=== PATIENT | female | born 1945 | race Caucasian/White ===

== ENCOUNTER 2023-01-27 13:29 | Inpatient (IN) ==
[2023-01-27 13:28] LABS: Hematocrit 39.1 % (35-45); Hemoglobin 13.5 g/dL (11.5-14.3); Mean Corpuscular Hemoglobin 32.1 pg (27-33); Mean Corpuscular Hgb Conc 34.5 g/dL (31-36); Red Cell Distribution Width 13.4 % (12-17); White Blood Count 0.6 10^3/uL (3.8-11.8)
[2023-01-27 13:54] LABS: ALT 19 U/L (7-52); AST 13 U/L (13-39); Albumin 3.9 g/dL (3.2-5.2); Albumin/Globulin Ratio 1.6 (1-3); Alkaline Phosphatase 56 U/L (35-149); Anion Gap 11 mmol/L (2-16); Blood Urea Nitrogen 29 mg/dL (6-24); CO2 Carbon Dioxide 24 mmol/L (22-32); Calcium 8.8 mg/dL (8.6-10.3); Chloride 98 mmol/L (101-111); Creatinine, Serum 0.96 mg/dL (0.51-0.95); Globulin 2.5 g/dL (2-4); Glucose 138 mg/dL (70-100); Magnesium 2.1 mg/dL (1.9-2.7); Potassium 4.1 mmol/L (3.5-5.0); Sodium 133 mmol/L (135-145); Total Protein 6.4 g/dL (6.4-8.9); eGFR CKD-EPI 60.2 (>60)
[2023-01-27 14:17] LABS: ABS Eosinophils 0.1 10^3/uL (0.0-0.5); ABS Lymphocytes 0.4 10^3/uL (1.0-4.8); ABS Monocytes 0.1 10^3/uL (0.0-0.9); ABS Neutrophils 0.1 10^3/uL (1.5-7.6); Eosinophil % 11.1 %; Lymphocyte % 63.2 %; Mean Platelet Volume 10.9 fL (7.5-11.2); Platelet Count 74 10^3/uL (150-450)
[2023-01-27 14:52] LABS: Amylase 13 U/L (29-103); C Reactive Protein 148.67 mg/L (<8.01); Lipase < 10 U/L (11.0-82.0)
[2023-01-27 15:06] LABS: Urine Appearance Cloudy; Urine Bilirubin Negative (Negative); Urine Blood 1+ (Negative); Urine Color Yellow; Urine Glucose Negative (Negative); Urine Ketones Negative (Negative); Urine Nitrite Negative (Negative); Urine Protein 1+(30 mg/dL) (Negative); Urine Specific Gravity 1.017 (1.002-1.030); Urine Urobilinogen Negative (Negative)
[2023-01-27 15:36] LABS: Urine Bacteria Absent (Absent); Urine Red Blood Cell 1+(3-5/hpf) (Absent); Urine Squamous Epithelial Cell Present (Absent); Urine White Blood Cell Trace(0-5/hpf) (Absent)
[2023-01-27] MEDS ORDERED: Dexamethasone IV 4 MG/ML VIAL 1 ml VIAL ONE (15:51)
[2023-01-27] MEDS ORDERED: Ondansetron 4 mg VIAL 2 MG/ML 2 ml VIAL ONE (15:51)
[2023-01-27] MEDS ORDERED: Famotidine IV 10 MG/ML 2 ml VIAL (20 mg) ONE (15:52)
[2023-01-27] MEDS ORDERED: Cefepime 2 GM VIAL ONE (15:59)
[2023-01-27] MEDS: NS 0.9% 1000 ml BAG 1,000 ML IV SCH (19:27)
[2023-01-27] MEDS: Mometasone 220 MCG MDI INH SCH (20:03)
[2023-01-27] MEDS: Cefepime 2 GM in Dextrose 2 GM/50 ML BAG IV SCH ×2 (20:28→20:57)
[2023-01-27 21:09] LABS: Calcium 8.5 mg/dL (8.6-10.3); Creatinine, Serum 0.92 mg/dL (0.51-0.95); Magnesium 1.9 mg/dL (1.9-2.7); Phosphorus 2.4 mg/dL (2.5-5.0); Potassium 3.9 mmol/L (3.5-5.0); eGFR CKD-EPI 63.3 (>60)
[2023-01-27] MEDS ORDERED: Potassium Phosphate IV 10 MMOL in NS 0.9% 250 ml 250 ML IVPB ONE (22:00)
[2023-01-28 05:51] LABS: ABS Lymphocytes 0.4 10^3/uL (1.0-4.8); ABS Monocytes 0.2 10^3/uL (0.0-0.9); Eosinophil % 0.4 %; Hematocrit 34.7 % (35-45); Lymphocyte % 69.3 %; Mean Corpuscular Hemoglobin 32.2 pg (27-33); Mean Corpuscular Hgb Conc 34.5 g/dL (31-36); Mean Corpuscular Volume 93.2 fL (80-97); Mean Platelet Volume 10.5 fL (7.5-11.2); Nucleated Red Blood Cells % 0.2 /100 WBC (0.0-0.4); Platelet Count 56 10^3/uL (150-450); Red Blood Count 3.72 10^6/uL (3.63-4.92); Red Cell Distribution Width 13.4 % (12-17); White Blood Count 0.6 10^3/uL (3.8-11.8)
[2023-01-28 05:54] LABS: Albumin 3.5 g/dL (3.2-5.2); Albumin/Globulin Ratio 1.4 (1-3); C Reactive Protein 241.64 mg/L (<8.01); Calcium 8.5 mg/dL (8.6-10.3); Creatinine, Serum 0.84 mg/dL (0.51-0.95); Globulin 2.5 g/dL (2-4); Potassium 3.9 mmol/L (3.5-5.0); Total Bilirubin 2.9 mg/dL (0.2-1.0); eGFR CKD-EPI 70.6 (>60)
[2023-01-28] MEDS: Cefepime 2 GM in Dextrose 2 GM/50 ML BAG IV SCH ×2 (06:18→12:34)
[2023-01-28] MEDS: Mometasone 220 MCG MDI INH SCH ×2 (07:17→18:31)
[2023-01-28] MEDS: NS 0.9% 1000 ml BAG 1,000 ML IV SCH (10:16)
[2023-01-28] MEDS ORDERED: Iohexol 350 (CONTRAST) 500 ML MDV IV ONE (12:13)
[2023-01-28] MEDS: Prochlorperazine 5 mg/ml 2 ml VIAL (10 mg) IV PRN (13:42)
[2023-01-28] MEDS: Nystatin SUSPENSION 100,000 UNITS/ML UDC SWISH SWAL SCH (20:08)
[2023-01-29] MEDS: NS 0.9% 1000 ml BAG 1,000 ML IV SCH ×2 (00:46→17:04)
[2023-01-29] MEDS: Cefepime 2 GM in Dextrose 2 GM/50 ML BAG IV SCH ×2 (00:47→12:33)
[2023-01-29 06:18] LABS: Hematocrit 32.3 % (35-45); Hemoglobin 11.3 g/dL (11.5-14.3); Mean Corpuscular Hgb Conc 34.8 g/dL (31-36); Mean Platelet Volume 10.8 fL (7.5-11.2); Platelet Count 69 10^3/uL (150-450); Red Blood Count 3.51 10^6/uL (3.63-4.92); Red Cell Distribution Width 13.4 % (12-17); White Blood Count 1.7 10^3/uL (3.8-11.8)
[2023-01-29 06:30] LABS: Albumin 3.3 g/dL (3.2-5.2); Albumin/Globulin Ratio 1.3 (1-3); Calcium 8.7 mg/dL (8.6-10.3); Creatinine, Serum 0.71 mg/dL (0.51-0.95); Globulin 2.5 g/dL (2-4); Potassium 3.8 mmol/L (3.5-5.0); Total Bilirubin 1.4 mg/dL (0.2-1.0); Total Protein 5.8 g/dL (6.4-8.9); eGFR CKD-EPI 86.4 (>60)
[2023-01-29] MEDS: Mometasone 220 MCG MDI INH SCH ×2 (07:35→19:17)
[2023-01-29] MEDS: Nystatin SUSPENSION 100,000 UNITS/ML UDC SWISH SWAL SCH ×4 (08:51→22:12)
[2023-01-29 16:28] LABS: Burr Cells 3+
[2023-01-29 16:31] LABS: Platelet Morphology Large
[2023-01-29 16:50] LABS: ABS Monocytes 0.4 10^3/ul (0.0-0.9)
[2023-01-29 16:54] LABS: ABS Neutrophils 0.3 10^3/ul (1.5-7.6)
[2023-01-29 16:55] LABS: ABS Lymphocytes 0.6 10^3/uL (1.0-4.8); ABS Nucleated RBC 0.01 10^3/ul; Eosinophil % 1.1 %; Lymphocyte % 35.1 %; Nucleated Red Blood Cells % 0.6 /100 WBC (0.0-0.4)
[2023-01-29] MEDS: Lactated Ringers 1000 ml BAG 1,000 ML IV SCH (17:33)
[2023-01-29] MEDS: Prochlorperazine 5 mg/ml 2 ml VIAL (10 mg) IV PRN (17:43)
[2023-01-29] MEDS: Ondansetron ODT 4 mg TAB 4 MG TAB SL PRN (22:12)
[2023-01-29] MEDS ORDERED: guaiFENesin 100 mg/5 ml LIQ unit dose cup PO ONE (22:26)
[2023-01-30] MEDS: Prochlorperazine 5 mg/ml 2 ml VIAL (10 mg) IV PRN ×3 (01:08→22:12)
[2023-01-30] MEDS: Cefepime 2 GM in Dextrose 2 GM/50 ML BAG IV SCH ×2 (01:10→13:22)
[2023-01-30] MEDS: Ondansetron ODT 4 mg TAB 4 MG TAB SL PRN ×2 (05:11→12:06)
[2023-01-30 06:01] LABS: Hematocrit 34.3 % (35-45); Hemoglobin 11.8 g/dL (11.5-14.3); Mean Corpuscular Hemoglobin 31.8 pg (27-33); Mean Corpuscular Hgb Conc 34.4 g/dL (31-36); Mean Corpuscular Volume 92.4 fL (80-97); Mean Platelet Volume 10.4 fL (7.5-11.2); Platelet Count 75 10^3/uL (150-450); Red Blood Count 3.72 10^6/uL (3.63-4.92); Red Cell Distribution Width 13.7 % (12-17); White Blood Count 13.3 10^3/uL (3.8-11.8)
[2023-01-30 06:13] LABS: Albumin 3.1 g/dL (3.2-5.2); Albumin/Globulin Ratio 1.2 (1-3); Calcium 8.8 mg/dL (8.6-10.3); Creatinine, Serum 0.65 mg/dL (0.51-0.95); Globulin 2.5 g/dL (2-4); Magnesium 1.8 mg/dL (1.9-2.7); Potassium 3.5 mmol/L (3.5-5.0); Total Bilirubin 1.7 mg/dL (0.2-1.0); Total Protein 5.6 g/dL (6.4-8.9); eGFR CKD-EPI 89.5 (>60)
[2023-01-30] MEDS: Mometasone 220 MCG MDI INH SCH ×2 (07:07→18:38)
[2023-01-30] MEDS ORDERED: Magnesium Sulfate IV 1GM/100ML 1 GM/100 ML BAG IV ONE (07:17)
[2023-01-30 07:27] LABS: Burr Cells 1+; Hypochromasia 1+; Platelet Morphology Large; Polychromasia 1+
[2023-01-30 07:28] LABS: ABS Monocytes 0.6 10^3/uL (0.0-0.9); ABS Neutrophils 11.6 10^3/uL (1.5-7.6); ABS Nucleated RBC 0.02 10^3/ul; Eosinophil % 0.3 %; Lymphocyte % 7.5 %; Nucleated Red Blood Cells % 0.2 /100 WBC (0.0-0.4)
[2023-01-30] MEDS: Lactated Ringers 1000 ml BAG 1,000 ML IV SCH ×2 (07:44→16:00)
[2023-01-30] MEDS: Nystatin SUSPENSION 100,000 UNITS/ML UDC SWISH SWAL SCH ×6 (08:42→20:22)
[2023-01-30] MEDS ORDERED: Lactated Ringers 1000 ml BAG 1,000 ML IV ONE (11:36)
[2023-01-30] MEDS ORDERED: Ondansetron 4 mg VIAL 2 MG/ML 2 ml VIAL IV PRN (14:20)
[2023-01-30] MEDS ORDERED: Trimethobenzamide *IM* 100 mg/ml 2 ml VIAL (200 mg) IM ONE (14:21)
[2023-01-30 14:52] LABS: C Reactive Protein 191.41 mg/L (<8.01)
[2023-01-30] MEDS ORDERED: Metoclopramide 5 MG/ML VIAL (10 mg) IV ONE (19:49)
[2023-01-31] MEDS ORDERED: Haloperidol 5 mg/ml SDV IV/IM 5 MG/ML AMP IV SLOW PU ONE (00:54)
[2023-01-31] MEDS ORDERED: ceFAZolin 2 GM PREMIX 2 GM/50 ML BAG IVPB SCH (01:00)
[2023-01-31] MEDS ORDERED: Metoprolol Tartrate 5 mg VIAL 5 ml VIAL (1 mg/ml) IV ONE (01:59)
[2023-01-31] MEDS ORDERED: Albuterol/Ipratropium NEB.SOL (2.5/0.5 MG) 3 ML NEB.SOLN INH ONE (02:30)
[2023-01-31] MEDS ORDERED: Albuterol/Ipratropium NEB.SOL (2.5/0.5 MG) 3 ML NEB.SOLN ONE (02:31)
[2023-01-31] MEDS: Lactated Ringers 1000 ml BAG 1,000 ML IV SCH ×3 (03:04→23:48)
[2023-01-31] MEDS ORDERED: EPINEPHrine Anaphylaxis SYR CERTADOSE SYR KIT IM PRN (04:24)
[2023-01-31 05:33] LABS: Hematocrit 34.2 % (35-45); Hemoglobin 11.6 g/dL (11.5-14.3); Mean Corpuscular Hemoglobin 31.9 pg (27-33); Mean Corpuscular Volume 93.8 fL (80-97); Mean Platelet Volume 10.5 fL (7.5-11.2); Platelet Count 90 10^3/uL (150-450); Red Blood Count 3.65 10^6/uL (3.63-4.92); Red Cell Distribution Width 13.6 % (12-17); White Blood Count 35.8 10^3/uL (3.8-11.8)
[2023-01-31 05:43] LABS: Albumin 2.8 g/dL (3.2-5.2); Albumin/Globulin Ratio 1.3 (1-3); Calcium 8.2 mg/dL (8.6-10.3); Creatinine, Serum 0.71 mg/dL (0.51-0.95); Globulin 2.1 g/dL (2-4); Magnesium 1.8 mg/dL (1.9-2.7); Potassium 3.1 mmol/L (3.5-5.0); Total Bilirubin 0.8 mg/dL (0.2-1.0); Total Protein 4.9 g/dL (6.4-8.9); eGFR CKD-EPI 86.4 (>60)
[2023-01-31] MEDS: Mometasone 220 MCG MDI INH SCH ×2 (07:18→18:38)
[2023-01-31] MEDS ORDERED: Calcium Carb (TUMS) 500 mg CHEW TAB PO ONE (07:22)
[2023-01-31] MEDS ORDERED: Magnesium Sulfate IV 1GM/100ML 1 GM/100 ML BAG IV ONE (07:29)
[2023-01-31] MEDS: KCL 20 MEQ/100 ML IVPREMIX 20 MEQ/100 ML BAG IV SCH ×2 (07:52→10:02)
[2023-01-31 08:14] LABS: C Reactive Protein 123.54 mg/L (<8.01)
[2023-01-31 08:31] LABS: RBC Morphology Normal (Normal)
[2023-01-31 08:32] LABS: ABS Monocytes 0.8 10^3/uL (0.0-0.9); Lymphocyte % 2.9 %
[2023-01-31] MEDS ORDERED: Metoclopramide 5 MG/ML VIAL (10 mg) IV PRN (08:54)
[2023-01-31] MEDS ORDERED: Metoprolol Tartrate 5 mg VIAL 5 ml VIAL (1 mg/ml) IV PRN (10:41)
[2023-01-31] MEDS ORDERED: Metoprolol Tartrate 5 mg VIAL 5 ml VIAL (1 mg/ml) IV SCH (11:00)
[2023-01-31] MEDS: Nystatin SUSPENSION 100,000 UNITS/ML UDC SWISH SWAL SCH ×4 (11:25→20:52)
[2023-01-31] MEDS: Pantoprazole VIAL 40 MG VIAL IV SCH (11:26)
[2023-01-31] MEDS: Metoprolol Tartrate 5 mg VIAL 5 ml VIAL (1 mg/ml) IV SCH ×2 (15:30→20:56)
[2023-02-01] MEDS ORDERED: Metoprolol Tartrate 5 mg VIAL 5 ml VIAL (1 mg/ml) ONE (02:16)
[2023-02-01] MEDS: Metoprolol Tartrate 5 mg VIAL 5 ml VIAL (1 mg/ml) IV SCH ×3 (02:19→13:54)
[2023-02-01 06:00] LABS: ABS Lymphocytes 0.9 10^3/uL (1.0-4.8); ABS Neutrophils 34.1 10^3/uL (1.5-7.6); Hematocrit 29.5 % (35-45); Hemoglobin 9.9 g/dL (11.5-14.3); Lymphocyte % 2.6 %; Mean Corpuscular Hemoglobin 31.4 pg (27-33); Mean Corpuscular Hgb Conc 33.7 g/dL (31-36); Mean Corpuscular Volume 93.3 fL (80-97); Mean Platelet Volume 10.4 fL (7.5-11.2); Platelet Count 89 10^3/uL (150-450); Red Blood Count 3.16 10^6/uL (3.63-4.92); Red Cell Distribution Width 13.8 % (12-17); White Blood Count 36.1 10^3/uL (3.8-11.8)
[2023-02-01 06:15] LABS: Creatinine, Serum 0.61 mg/dL (0.51-0.95); Magnesium 1.8 mg/dL (1.9-2.7); Potassium 4.1 mmol/L (3.5-5.0); eGFR CKD-EPI 90.9 (>60)
[2023-02-01] MEDS: Mometasone 220 MCG MDI INH SCH ×2 (06:53→19:10)
[2023-02-01] MEDS ORDERED: Magnesium Sulfate 2 gm BAG 2 GM/50 ML BAG IVPB ONE (07:50)
[2023-02-01] MEDS: Pantoprazole VIAL 40 MG VIAL IV SCH (07:58)
[2023-02-01] MEDS: Nystatin SUSPENSION 100,000 UNITS/ML UDC SWISH SWAL SCH ×4 (08:03→20:24)
[2023-02-02 05:58] LABS: Hematocrit 28.1 % (35-45); Hemoglobin 9.8 g/dL (11.5-14.3); Mean Corpuscular Hemoglobin 32.3 pg (27-33); Mean Corpuscular Hgb Conc 34.8 g/dL (31-36); Mean Corpuscular Volume 92.8 fL (80-97); Mean Platelet Volume 9.8 fL (7.5-11.2); Platelet Count 92 10^3/uL (150-450); Red Blood Count 3.02 10^6/uL (3.63-4.92); Red Cell Distribution Width 13.8 % (12-17); White Blood Count 22.4 10^3/uL (3.8-11.8)
[2023-02-02] MEDS: Mometasone 220 MCG MDI INH SCH (07:03)
[2023-02-02] MEDS: Nystatin SUSPENSION 100,000 UNITS/ML UDC SWISH SWAL SCH ×4 (08:23→16:51)
[2023-02-02] MEDS: Pantoprazole VIAL 40 MG VIAL IV SCH (08:23)
[2023-02-02 14:44] VITALS: BP 134/71
[2023-02-02 15:27] LABS: Hematocrit 30.7 % (35-45); Hemoglobin 10.4 g/dL (11.5-14.3)
== END 2023-02-02 18:15 | disposition home or self-care (01) | DRG 809 ==
LOC: CHOA 13:29 → SUATTDRO 17:58 → MED 17:58
PROVIDERS: ADMIT Internal Medicine Hematology & Oncology; ATTEND Hospitalist

== ENCOUNTER 2023-07-03 08:56 | Observation (INO) ==
[2023-07-03 09:32] LABS: ABS Eosinophils 0.3 10^3/uL (0.0-0.5); ABS Lymphocytes 0.7 10^3/uL (1.0-4.8); ABS Monocytes 0.6 10^3/uL (0.0-0.9); ABS Neutrophils 4.2 10^3/uL (1.5-7.6); ABS Nucleated RBC 0.01 10^3/ul; Eosinophil % 5.1 %; Hematocrit 35.5 % (35-45); Hemoglobin 12.1 g/dL (11.5-14.3); Lymphocyte % 12.1 %; Mean Corpuscular Volume 94.2 fL (80-97); Mean Platelet Volume 8.3 fL (7.5-11.2); Nucleated Red Blood Cells % 0.1 %/100WBC (0.0-0.8); Platelet Count 147 10^3/uL (150-450); Red Blood Count 3.77 10^6/uL (3.63-4.92); Red Cell Distribution Width 15.6 % (12-17); White Blood Count 5.8 10^3/uL (3.8-11.8)
[2023-07-03 09:46] LABS: INR 1.53 (0.83-1.13)
[2023-07-03 10:39] LABS: Albumin 4.1 g/dL (3.2-5.2); Albumin/Globulin Ratio 1.3 (1-3); Calcium 9.7 mg/dL (8.6-10.3); Creatinine, Serum 0.75 mg/dL (0.51-0.95); Globulin 3.2 g/dL (2-4); Magnesium 1.9 mg/dL (1.9-2.7); Potassium 4.1 mmol/L (3.5-5.0); Total Bilirubin 1.1 mg/dL (0.2-1.0); Total Protein 7.3 g/dL (6.4-8.9); eGFR CKD-EPI 80.4 (>60)
[2023-07-03] MEDS ORDERED: Iohexol 350 (CONTRAST) 500 ML MDV IV ONE (11:06)
[2023-07-03 12:33] LABS: High Sensitivity Troponin 1 Hr 5 pg/mL (<15)
[2023-07-03 12:42] LABS: TSH Ultra Thyroid Stim Horm 1.04 mcIU/mL (0.34-5.60)
[2023-07-03] MEDS ORDERED: Labetalol IV 5 MG/ML 20 ml VIAL IV PUSH ONE (13:36)
[2023-07-03 14:24] LABS: Urine Appearance Clear; Urine Bilirubin Negative (Negative); Urine Blood Negative (Negative); Urine Color Straw; Urine Glucose Negative (Negative); Urine Ketones Negative (Negative); Urine Nitrite Negative (Negative); Urine Protein Negative (Negative); Urine Specific Gravity 1.032 (1.002-1.030); Urine Urobilinogen Negative (Negative)
[2023-07-03] MEDS ORDERED: Magnesium Sulfate 2 gm BAG 2 GM/50 ML BAG IVPB ONE (14:42)
[2023-07-03] MEDS ORDERED: oxyCODONE/Acetamin 5/325 mg TAB PO PRN (16:11)
[2023-07-03] MEDS ORDERED: Albuterol HFA INHALER 8 gm MDI INH PRN (16:20)
[2023-07-03] MEDS ORDERED: Labetalol IV 5 MG/ML 20 ml VIAL IV PUSH PRN (17:45)
[2023-07-03 18:15] LABS: Body Fluid Total Nucleated 452 /mcL
[2023-07-03 19:05] LABS: Body Fluid Appearance Clear; Body Fluid Color Yellow; Body Fluid Source Pleural Fluid; Body Fluid Total Cells Counted 200
[2023-07-03 19:39] LABS: Body Fluid Band 1 %; Body Fluid Mono 9 %; Body Fluid Other Cells 245
[2023-07-04 07:43] LABS: Creatinine, Serum 0.71 mg/dL (0.51-0.95); Potassium 3.6 mmol/L (3.5-5.0); eGFR CKD-EPI 85.9 (>60)
[2023-07-04] MEDS ORDERED: Influenza vaccine *QUAD* *2023-24* 0.5 ML SYRINGE IM ONE (09:00)
[2023-07-04] MEDS ORDERED: CMCS: Anastrozole 1 mg TAB (NF) PO SCH (09:00)
[2023-07-04 10:14] VITALS: BP 162/73
[2023-07-05 14:01] LABS: Lactate Dehydrogenase, BF 85 U/L
[2023-07-05 14:52] LABS: Fluid Type, Protein, Total PLEURAL FLUID; Fluid Type: PLEURAL FLUID; Glucose, BF 114 mg/dL; Triglycerides (BF) 18 mg/dL
== END 2023-07-04 12:30 | disposition home or self-care (01) ==
LOC: EDHOLD 08:56 → ED 08:56 → MED 16:01
PROVIDERS: ADMIT Hospitalist; ATTEND Hospitalist